=== PATIENT | female | born 1950 | race Asian ===

== ENCOUNTER 2018-05-14 17:57 | Emergency (ER) | payer MEDICARE, OTHER ==
[~2018-05-14] VITALS: Ht 149.9 cm; Wt 65.0 kg
[~2018-05-14 17:57] MED LIST: AMLO-512 PO
[2018-05-14 19:58] VITALS: BP 149/89
== END 2018-05-14 20:30 | disposition home or self-care (01) ==
LOC: EMS 17:57
DX: M25.562 Pain in left knee (principal); I12.9 Hypertensive chronic kidney disease with stage 1 through stage 4 chronic kidney disease, or unspecified chronic kidney disease; N18.9 Chronic kidney disease, unspecified; Z86.73 Personal history of transient ischemic attack (TIA), and cerebral infarction without residual deficits; Z79.899 Other long term (current) drug therapy
CPT/HCPCS: 29505; 99284

== ENCOUNTER 2020-06-06 04:21 | Emergency (ER) | payer MEDICARE, OTHER ==
[~2020-06-06] VITALS: Ht 149.9 cm; Wt 63.6 kg
[~2020-06-06 04:21] MED LIST changes: +AMLO-258 PO; -AMLO-512 PO
[2020-06-06 04:34] VITALS: BP 149/66
[2020-06-06 05:17] LABS: BASOPHILS % (AUTO) 0.7 % (0.0-2.0); HEMATOCRIT 35.3 % (36-46); HEMOGLOBIN 11.6 g/dL (12.0-16.0); LYMPHOCYTES % (AUTO) 19.7 % (22.0-44.0); MEAN CORPUSCULAR HEMOGLOBIN 31.6 pg (26.0-34.0); MEAN CORPUSCULAR HGB CONC 32.8 G/dL (31.0-37.0); MEAN CORPUSCULAR VOLUME 96 fL (80-100); MONOCYTES # (AUTO) 0.9 K/uL (0.1-1.0); NEUTROPHILS # (AUTO) 6.7 K/uL (1.8-7.7); NEUTROPHILS % (AUTO) 66.6 % (40.0-70.0); PLATELET COUNT (AUTO) 317 K/uL (150-450); RED BLOOD CELL COUNT(AUTO) 3.67 MIL/uL (4.00-5.20); RED CELL DISTRIBUTION WIDTH 13.8 % (11.5-14.5)
[2020-06-06 05:20] LABS: GLUCOSE,POINT OF CARE 98 MG/DL (70-110)
[2020-06-06 05:23] LABS: ANION GAP 7 mmol/L (8-16); CARBON DIOXIDE 26 mmol/L (22-29); CHLORIDE 106 mmol/L (98-107); CREATININE 4.07 mg/dL (0.60-1.30); GLOMERULAR FILTR. RATE CALC 11 mL/min (>60); GLUCOSE,RANDOM 103 mg/dL (70-110); POTASSIUM 3.6 mmol/L (3.5-5.1); SODIUM SERUM 139 mmol/L (136-145); UREA NITROGEN, BLOOD 30 mg/dL (7-18)
[2020-06-06] MEDS ORDERED: SODIUM CHLORIDE 0.9% 1,000 ML IV ONE (05:30)
[2020-06-06 05:48] LABS: ALANINE AMINOTRANSFERASE 20 U/L (12-78); ALBUMIN 3.6 g/dL (3.4-5.0); ALKALINE PHOSPHATASE 93 U/L (46-116); ASPARTATE AMINOTRANSFERASE 17 U/L (15-37); BILIRUBIN,TOTAL 0.5 mg/dL (0.1-1.0); CREATINE KINASE, TOTAL ONLY 83 U/L (26-192); TOTAL PROTEIN, SERUM 8.1 g/dL (6.4-8.2)
== END 2020-06-06 05:44 | disposition left against medical advice (07) ==
LOC: EMS 04:21
DX: R55 Syncope and collapse (principal); R06.00 Dyspnea, unspecified; R79.89 Other specified abnormal findings of blood chemistry
CPT/HCPCS: 36415; 70450; 71045; 80053; 82550; 82962; 84484; 85025; 93005; 99285; G0480; 82948

== ENCOUNTER 2021-01-13 21:07 | Emergency (ER) | payer MEDICARE, OTHER ==
[~2021-01-13] VITALS: Ht 144.8 cm; Wt 63.6 kg
[2021-01-13] MEDS ORDERED: CLOB15CR10 TP (21:22)
[2021-01-13] MEDS ORDERED: ASPI-1450 PO (21:22)
[2021-01-13] MEDS ORDERED: DIPY25TA31 PO (21:22)
[2021-01-13] MEDS ORDERED: ATOR10TA84 PO (21:22)
[2021-01-13] MEDS ORDERED: APRE1TAB PO (21:22)
[2021-01-13 22:02] LABS: BASOPHILS % (AUTO) 0.8 % (0.0-2.0); EOSINOPHILS % (AUTO) 5.5 % (1.0-6.0); HEMATOCRIT 29.8 % (36-46); HEMOGLOBIN 9.7 g/dL (12.0-16.0); LYMPHOCYTES # (AUTO) 2.8 K/uL (1.0-4.8); LYMPHOCYTES % (AUTO) 26.4 % (22.0-44.0); MEAN CORPUSCULAR HEMOGLOBIN 31.9 pg (26.0-34.0); MEAN CORPUSCULAR HGB CONC 32.6 G/dL (31.0-37.0); MEAN CORPUSCULAR VOLUME 98 fL (80-100); MONOCYTES # (AUTO) 0.8 K/uL (0.1-1.0); MONOCYTES % (AUTO) 8.1 % (2.0-9.0); NEUTROPHILS # (AUTO) 6.2 K/uL (1.8-7.7); NEUTROPHILS % (AUTO) 59.2 % (40.0-70.0); PLATELET COUNT (AUTO) 292 K/uL (150-450); RED BLOOD CELL COUNT(AUTO) 3.04 MIL/uL (4.00-5.20); RED CELL DISTRIBUTION WIDTH 13.5 % (11.5-14.5)
[2021-01-13 22:11] LABS: CREATININE 5.08 mg/dL (0.60-1.30); POTASSIUM 4.3 mmol/L (3.5-5.1)
[2021-01-13 22:30] LABS: B-TYPE NATRIURETIC PEPTIDE 78 pg/mL (0-100)
[2021-01-13] MEDS ORDERED: MECLIZINE HCL 25 MG TABLET PO ONE (22:30)
[2021-01-13 22:39] LABS: CREATINE KINASE, TOTAL ONLY 96 U/L (26-192)
[2021-01-13 22:40] LABS: ALBUMIN 3.6 g/dL (3.4-5.0); BILIRUBIN,TOTAL 0.4 mg/dL (0.1-1.0); TOTAL PROTEIN, SERUM 7.2 g/dL (6.4-8.2)
[2021-01-14 00:02] VITALS: BP 132/78
== END 2021-01-14 00:04 | disposition home or self-care (01) ==
LOC: EMS 21:07
DX: R07.9 Chest pain, unspecified (principal); R42 Dizziness and giddiness; I10 Essential (primary) hypertension; Z86.73 Personal history of transient ischemic attack (TIA), and cerebral infarction without residual deficits
CPT/HCPCS: 70450; 71045; 80053; 82550; 83880; 84484; 85025; 93005; 99285; 36415-L1; 36415-TC

== ENCOUNTER 2021-02-15 23:10 | Emergency (ER) | payer MEDICARE, OTHER ==
[~2021-02-15] VITALS: Ht 149.9 cm; Wt 63.6 kg
[~2021-02-15 23:10] MED LIST changes: +APRE1TAB PO; +ASPI-1450 PO; +ATOR10TA84 PO; +CLOB15CR10 TP; +DIPY25TA31 PO
[2021-02-15] MEDS ORDERED: DiphenhydrAMINE HCL 50 MG/ML VIAL IVP STA (23:31)
[2021-02-15] MEDS ORDERED: METOCLOPRAMIDE HCL 5 MG/ML 2 ML VIAL IVP ONE (23:45)
[2021-02-15] MEDS ORDERED: SODIUM CHLORIDE 0.9% 1,000 ML IV ONE (23:45)
[2021-02-16 00:29] LABS: BASOPHILS % (AUTO) 0.8 % (0.0-2.0); EOSINOPHILS % (AUTO) 1.2 % (1.0-6.0); HEMATOCRIT 33.9 % (36-46); LYMPHOCYTES # (AUTO) 1.2 K/uL (1.0-4.8); LYMPHOCYTES % (AUTO) 11.5 % (22.0-44.0); MEAN CORPUSCULAR HEMOGLOBIN 31.5 pg (26.0-34.0); MEAN CORPUSCULAR HGB CONC 32.3 G/dL (31.0-37.0); MEAN CORPUSCULAR VOLUME 98 fL (80-100); MONOCYTES # (AUTO) 0.6 K/uL (0.1-1.0); MONOCYTES % (AUTO) 5.9 % (2.0-9.0); NEUTROPHILS # (AUTO) 8.6 K/uL (1.8-7.7); NEUTROPHILS % (AUTO) 80.6 % (40.0-70.0); PLATELET COUNT (AUTO) 323 K/uL (150-450); RED BLOOD CELL COUNT(AUTO) 3.48 MIL/uL (4.00-5.20); RED CELL DISTRIBUTION WIDTH 13.6 % (11.5-14.5)
[2021-02-16 00:38] LABS: CREATININE 4.62 mg/dL (0.60-1.30); POTASSIUM 3.9 mmol/L (3.5-5.1)
[2021-02-16 01:03] LABS: ALBUMIN 3.5 g/dL (3.4-5.0); BILIRUBIN,TOTAL 0.6 mg/dL (0.1-1.0); MAGNESIUM 2.3 mg/dL (1.80-2.40); TOTAL PROTEIN, SERUM 7.9 g/dL (6.4-8.2)
[2021-02-16] MEDS ORDERED: SODIUM CHLORIDE 0.9% 1,000 ML IV ONE (01:15)
[2021-02-16] MEDS ORDERED: ACETAMINOPHEN 500 MG TABLET PO ONE (01:15)
[2021-02-16 01:22] LABS: APPEARANCE,URINE CLEAR (CLEAR); BILIRUBIN,URINE NEGATIVE (NEGATIVE); GLUCOSE, URINE (UA) NEGATIVE (NEGATIVE); KETONES,URINE NEGATIVE (NEGATIVE); LEUKOCYTE ESTERASE ,URINE NEGATIVE (NEGATIVE); NITRATE,URINE NEGATIVE (NEGATIVE); OCCULT BLOOD,URINE TRACE (NEGATIVE); PROTEIN,URINE POS 1+ (NEGATIVE); UROBILINOGEN,URINE 0.2 mg/dL (<=1.0)
[2021-02-16 01:29] LABS: BACTERIA,URINE None Seen /HPF (None Seen); RBC,URINE None Seen /HPF (0-2); SQUAMOUS EPITHELIAL CELL,UR None Seen /LPF (None Seen); WBC,URINE None Seen /HPF (0-5)
[2021-02-16] MEDS ORDERED: LOPERAMIDE HCL 2 MG CAPSULE PO ONE (02:15)
[2021-02-16 02:19] LABS: COVID AG,FIA SOURCE NASOPHARYNGEAL
[2021-02-16 02:51] VITALS: BP 121/67
== END 2021-02-16 03:08 | disposition home or self-care (01) ==
LOC: EMS 23:11
DX: E86.0 Dehydration (principal); R11.2 Nausea with vomiting, unspecified; R19.7 Diarrhea, unspecified; I12.9 Hypertensive chronic kidney disease with stage 1 through stage 4 chronic kidney disease, or unspecified chronic kidney disease; N18.9 Chronic kidney disease, unspecified; Z20.822 Contact with and (suspected) exposure to COVID-19; Z86.73 Personal history of transient ischemic attack (TIA), and cerebral infarction without residual deficits; Z79.82 Long term (current) use of aspirin
CPT/HCPCS: 36415; 80053; 81001; 82550; 83690; 83735; 84484; 85025; 87426; 93005; 96361 ×2; 96374; 96375; 99285; J1200; J2765; J7030 ×2

== ENCOUNTER → 2022-07-18 | Outpatient (CLI) | payer MEDICARE, OTHER ==
[~2022-07-18] MED LIST changes: +ATOR10TA PO; -ATOR10TA84 PO
== END | disposition home or self-care (01) ==
LOC: RADPV 11:00
PROVIDERS: ATTEND Internal Medicine Nephrology
DX: N18.5 Chronic kidney disease, stage 5 (principal)
CPT/HCPCS: 76770

== ENCOUNTER 2022-12-08 21:23 | Emergency (ER) | payer MEDICARE, OTHER ==
[~2022-12-08] VITALS: Ht 149.9 cm; Wt 50.0 kg
[2022-12-08 21:46] VITALS: BP 111/53
== END 2022-12-08 23:31 | disposition left against medical advice (07) ==
LOC: EMS 21:23
DX: R00.2 Palpitations (principal); Z53.21 Procedure and treatment not carried out due to patient leaving prior to being seen by health care provider
CPT/HCPCS: 93005; 99281

== ENCOUNTER 2023-08-24 13:48 | Inpatient (IN) | payer MEDICARE, OTHER ==
[~2023-08-24] VITALS: Ht 149.9 cm; Wt 40.1 kg
[2023-08-24] MEDS ORDERED: FOLI0.8T2 PO (14:15)
[2023-08-24] MEDS ORDERED: CINA30 PO (14:15)
[2023-08-24] MEDS ORDERED: CHOL25TA4 PO (14:15)
[2023-08-24] MEDS ORDERED: HYDR-3831 PO (14:15)
[2023-08-24] MEDS ORDERED: CALC0.25 PO (14:15)
[2023-08-24] MEDS ORDERED: APRE30TA5 PO (14:15)
[2023-08-24] MEDS ORDERED: SODI650T33 PO (14:15)
[2023-08-24] MEDS ORDERED: ASPI-1522 PO (14:15)
[2023-08-24] MEDS ORDERED: PANT-31 PO (14:15)
[2023-08-24] MEDS ORDERED: VITA180C2 PO (14:15)
[2023-08-24] MEDS ORDERED: AMLO-257 PO (14:15)
[2023-08-24] MEDS ORDERED: SEVE800T38 PO (14:15)
[2023-08-24] MEDS ORDERED: ATOR20TA PO (14:15)
[2023-08-24] MEDS ORDERED: PANTOPRAZOLE SODIUM 80 MG in SODIUM CHLORIDE 0.9% 100 ML IV SCH (14:45)
[2023-08-24] MEDS ORDERED: PANTOPRAZOLE SODIUM 40 MG/VIAL IVP ONE (14:45)
[2023-08-24 15:06] LABS: BASOPHILS % (AUTO) 0.9 % (0.0-2.0); EOSINOPHILS % (AUTO) 0.3 % (1.0-6.0); LYMPHOCYTES % (AUTO) 10.8 % (22.0-44.0); MEAN CORPUSCULAR HEMOGLOBIN 33.8 pg (26.0-34.0); MEAN CORPUSCULAR HGB CONC 33.5 G/dL (31.0-37.0); MEAN CORPUSCULAR VOLUME 101 fL (80-100); MONOCYTES # (AUTO) 0.3 K/uL (0.1-1.0); MONOCYTES % (AUTO) 3.7 % (2.0-9.0); NEUTROPHILS # (AUTO) 7.7 K/uL (1.8-7.7); NEUTROPHILS % (AUTO) 84.3 % (40.0-70.0); PLATELET COUNT (AUTO) 202 K/uL (150-450); RED BLOOD CELL COUNT(AUTO) 1.24 MIL/uL (4.00-5.20); RED CELL DISTRIBUTION WIDTH 14.5 % (11.5-14.5); WHITE BLOOD COUNT (AUTO) 9.2 K/uL (4.5-11.0)
[2023-08-24 15:16] LABS: ANION GAP 15 mmol/L (8-16); CALCIUM, TOTAL 8.4 mg/dL (8.8-10.5); CARBON DIOXIDE 21 mmol/L (22-29); CHLORIDE 98 mmol/L (98-107); CREATININE 8.62 mg/dL (0.60-1.30); GLOMERULAR FILTR. RATE CALC 5 mL/min (>60); GLUCOSE,RANDOM 109 mg/dL (70-110); POTASSIUM 3.8 mmol/L (3.5-5.1); SODIUM SERUM 134 mmol/L (136-145); UREA NITROGEN, BLOOD 89 mg/dL (7-18)
[2023-08-24 15:20] LABS: INR 0.9 (0.9-1.1); PROTHROMBIN TIME 9.8 SEC (9.4-11.6)
[2023-08-24 15:21] LABS: HEMATOCRIT 12.5 % (36-46); HEMOGLOBIN 4.2 g/dL (12.0-16.0)
[2023-08-24 15:22] LABS: ALANINE AMINOTRANSFERASE 14 U/L (12-78); ALBUMIN 2.5 g/dL (3.4-5.0); ALKALINE PHOSPHATASE 47 U/L (46-116); ASPARTATE AMINOTRANSFERASE 19 U/L (15-37); BILIRUBIN,TOTAL 0.2 mg/dL (0.1-1.0)
[2023-08-24 15:23] LABS: B-TYPE NATRIURETIC PEPTIDE 96 pg/mL (0-100); TROPONIN I-HIGH SENSITIVITY 51 ng/L (<51)
[2023-08-24 15:24] LABS: LACTIC ACID 1.5 mmol/L (0.4-2.0)
[2023-08-24 15:25] LABS: ALCOHOL, BLOOD (SERUM) < 3 mg/dL (0-10)
[2023-08-24 15:33] LABS: LIPASE 424 U/L (16-77)
[2023-08-24] MEDS ORDERED: DiphenhydrAMINE HCL 25 MG CAPSULE PO ONE (16:00)
[2023-08-24] MEDS ORDERED: ACETAMINOPHEN 500 MG TABLET PO ONE (16:00)
[2023-08-24 16:09] LABS: RBC MORPHOLOGY COMMENT ABNORMAL RBC MORPH
[2023-08-24 17:08] LABS: COVID AG,FIA SOURCE NASAL SWAB
[2023-08-24 17:38] LABS: SARS-COV2 (COVID) ANTIGEN,FIA Negative (Negative)
[2023-08-24 18:00] VITALS: BP 109/63; PULSE 96; PULSE 97; RESP 24; TEMP 98.3
[2023-08-24 20:00] VITALS: BP 118/50; PULSE 94; PULSE 99; RESP 16; TEMP 98.5
[2023-08-24 20:45] VITALS: BP 118/50; PULSE 70; RESP 18; TEMP 97.6
[2023-08-24] MEDS ORDERED: MAGNESIUM HYDROXIDE SUSPENSION 30 ML UDCUP PO PRN (21:15)
[2023-08-24] MEDS ORDERED: BISACODYL 10 MG RECTAL RECTAL SUPPOSITORY PR PRN (21:15)
[2023-08-24] MEDS ORDERED: ALBUTEROL SULFATE 2.5 MG/0.5 ML NEB SOLUTION NEB PRN (21:15)
[2023-08-24] MEDS ORDERED: MORPHINE SULFATE 2 MG/ML SYRINGE IVP PRN (21:15)
[2023-08-24] MEDS ORDERED: ZOLPIDEM TARTRATE 5 MG TABLET PO PRN (21:15)
[2023-08-24] MEDS ORDERED: IPRATROPIUM BROMIDE 0.5 MG/2.5 ML NEB SOLUTION NEB PRN (21:15)
[2023-08-24] MEDS ORDERED: ONDANSETRON HCL 4 MG/2 ML VIAL IVP PRN (21:15)
[2023-08-24] MEDS ORDERED: ACETAMINOPHEN 325 MG TABLET PO PRN (21:15)
[2023-08-24] MEDS ORDERED: HYDROCODONE/ACETAMINOPHEN 5-325 MG TABLET PO PRN (21:15)
[2023-08-24 22:05] LABS: MONOCYTES # (AUTO) 0.5 K/uL (0.1-1.0)
[2023-08-24 22:07] LABS: BASOPHILS % (AUTO) 1.1 % (0.0-2.0); EOSINOPHILS % (AUTO) 1.9 % (1.0-6.0); LYMPHOCYTES # (AUTO) 1.7 K/uL (1.0-4.8); LYMPHOCYTES % (AUTO) 18.7 % (22.0-44.0); MEAN CORPUSCULAR HEMOGLOBIN 34.5 pg (26.0-34.0); MEAN CORPUSCULAR VOLUME 101 fL (80-100); MONOCYTES % (AUTO) 5.6 % (2.0-9.0); NEUTROPHILS # (AUTO) 6.7 K/uL (1.8-7.7); NEUTROPHILS % (AUTO) 72.7 % (40.0-70.0); PLATELET COUNT (AUTO) 228 K/uL (150-450); RED CELL DISTRIBUTION WIDTH 14.3 % (11.5-14.5); WHITE BLOOD COUNT (AUTO) 9.3 K/uL (4.5-11.0)
[2023-08-24 22:15] LABS: CALCIUM, TOTAL 8.6 mg/dL (8.8-10.5); CREATININE 9.21 mg/dL (0.60-1.30); POTASSIUM 3.6 mmol/L (3.5-5.1)
[2023-08-24 22:26] LABS: ALBUMIN 2.6 g/dL (3.4-5.0); BILIRUBIN,TOTAL 0.2 mg/dL (0.1-1.0); TOTAL PROTEIN, SERUM 5.3 g/dL (6.4-8.2)
[2023-08-24 22:33] LABS: HEMATOCRIT 12.2 % (36-46); HEMOGLOBIN 4.1 g/dL (12.0-16.0)
[2023-08-24] MEDS ORDERED: DEXTROSE 5%-0.45% SODIUM CHL 1,000 ML IV PRN (23:55)
[2023-08-25] VITALS (17 sets, daily range): BP systolic 93–143; BP diastolic 44–97; PULSE 77–91; RESP 14–21; TEMP 97.8–98.5
[2023-08-25] MEDS ORDERED: SODIUM CHLORIDE 0.9% 250 ML IV ONE (06:12)
[2023-08-25] MEDS: DOCUSATE SODIUM 100 MG CAPSULE PO SCH ×2 (09:00→21:00)
[2023-08-25] MEDS: PANTOPRAZOLE SODIUM 80 MG in SODIUM CHLORIDE 0.9% 100 ML IV SCH ×3 (10:06)
[2023-08-25 13:33] LABS: EOSINOPHILS % (AUTO) 2.6 % (1.0-6.0); HEMATOCRIT 25.2 % (36-46); HEMOGLOBIN 8.8 g/dL (12.0-16.0); LYMPHOCYTES # (AUTO) 1.2 K/uL (1.0-4.8); LYMPHOCYTES % (AUTO) 13.2 % (22.0-44.0); MEAN CORPUSCULAR HEMOGLOBIN 33.3 pg (26.0-34.0); MEAN CORPUSCULAR HGB CONC 34.9 G/dL (31.0-37.0); MEAN CORPUSCULAR VOLUME 95 fL (80-100); MONOCYTES # (AUTO) 0.7 K/uL (0.1-1.0); MONOCYTES % (AUTO) 7.7 % (2.0-9.0); NEUTROPHILS # (AUTO) 7.1 K/uL (1.8-7.7); NEUTROPHILS % (AUTO) 75.5 % (40.0-70.0); PLATELET COUNT (AUTO) 184 K/uL (150-450); RED BLOOD CELL COUNT(AUTO) 2.64 MIL/uL (4.00-5.20); RED CELL DISTRIBUTION WIDTH 13.8 % (11.5-14.5); WHITE BLOOD COUNT (AUTO) 9.4 K/uL (4.5-11.0)
[2023-08-25] MEDS ORDERED: PROPOFOL 1% 20 ML VIAL IVP ONE (14:56)
[2023-08-25] MEDS ORDERED: LIDOCAINE/PF 2% 5 ML VIAL ONE (14:56)
[2023-08-25 17:06] LABS: APPEARANCE,URINE HAZY (CLEAR); BILIRUBIN,URINE NEGATIVE (NEGATIVE); COLOR,URINE LIGHT YELLOW (YELLOW); GLUCOSE, URINE (UA) 150-200 mg/dL (NEGATIVE); KETONES,URINE NEGATIVE (NEGATIVE); LEUKOCYTE ESTERASE ,URINE NEGATIVE (NEGATIVE); NITRATE,URINE NEGATIVE (NEGATIVE); OCCULT BLOOD,URINE LARGE (NEGATIVE); PROTEIN,URINE 30-70 mg/dL (NEGATIVE); SPECIFIC GRAVITIY, URINE 1.006 (1.003-1.030); UROBILINOGEN,URINE <=1.0 mg/dL (<=1.0)
[2023-08-25 17:10] LABS: BACTERIA,URINE Few /HPF (None Seen); SQUAMOUS EPITHELIAL CELL,UR Moderate /LPF (None Seen); WBC,URINE 0-2 /HPF (0-5)
[2023-08-26] VITALS: BP 138/63; PULSE 82; RESP 21; TEMP 98.3
[2023-08-26 04:00] VITALS: BP 152/72; PULSE 84; RESP 18; TEMP 98.6
[2023-08-26 05:54] LABS: ALBUMIN 2.4 g/dL (3.4-5.0); BILIRUBIN,TOTAL 0.4 mg/dL (0.1-1.0); CALCIUM, TOTAL 8.3 mg/dL (8.8-10.5); CREATININE 9.03 mg/dL (0.60-1.30); PHOSPHORUS 6.6 mg/dL (2.5-4.9); POTASSIUM 3.6 mmol/L (3.5-5.1); TOTAL PROTEIN, SERUM 5.1 g/dL (6.4-8.2)
[2023-08-26 06:02] LABS: HEMATOCRIT 24.2 % (36-46); HEMOGLOBIN 8.8 g/dL (12.0-16.0); LYMPHOCYTES # (AUTO) 1.2 K/uL (1.0-4.8); MEAN CORPUSCULAR HGB CONC 36.5 G/dL (31.0-37.0); MEAN CORPUSCULAR VOLUME 93 fL (80-100); MONOCYTES # (AUTO) 0.8 K/uL (0.1-1.0); MONOCYTES % (AUTO) 9.3 % (2.0-9.0); NEUTROPHILS # (AUTO) 6.5 K/uL (1.8-7.7); NEUTROPHILS % (AUTO) 71.7 % (40.0-70.0); PLATELET COUNT (AUTO) 210 K/uL (150-450); RED CELL DISTRIBUTION WIDTH 14.7 % (11.5-14.5)
[2023-08-26 08:00] VITALS: BP 152/86; PULSE 78; RESP 12; TEMP 98.1
[2023-08-26] MEDS: DOCUSATE SODIUM 100 MG CAPSULE PO SCH (08:14)
[2023-08-26] MEDS ORDERED: PANTOPRAZOLE SODIUM 40 MG DR TABLET PO SCH (09:00)
[2023-08-26 12:00] VITALS: BP 153/74; PULSE 83; RESP 10; TEMP 98.4
[2023-08-26] MEDS ORDERED: SEVELAMER CARBONATE 800 MG TABLET PO SCH (12:00)
[2023-08-26] MEDS ORDERED: PANT-31 PO (15:32)
[2023-08-26 16:00] VITALS: BP 135/69; PULSE 86; RESP 17; TEMP 98.3
[2023-08-27] MEDS ORDERED: CALCITRIOL 0.25 MCG CAPSULE PO ONE (09:00)
== END 2023-08-26 16:45 | disposition home or self-care (01) | DRG 377 ==
LOC: EMS 13:49 → 6S 15:09 → 5S 16:35 → 6S 16:35 → ICU 17:32
PROVIDERS: ADMIT Hospitalist; ATTEND Hospitalist
PROC: 3E1M39Z Irrigation of Peritoneal Cavity using Dialysate, Percutaneous Approach (ICD-10-PCS; 2023-08-24)
PROC: 30233N1 Transfusion of Nonautologous Red Blood Cells into Peripheral Vein, Percutaneous Approach (ICD-10-PCS; 2023-08-25)
PROC: 3E1M39Z Irrigation of Peritoneal Cavity using Dialysate, Percutaneous Approach (ICD-10-PCS; 2023-08-25)
PROC: 0DJ08ZZ Inspection of Upper Intestinal Tract, Via Natural or Artificial Opening Endoscopic (ICD-10-PCS; principal; 2023-08-25 13:30)
DX: K29.81 Duodenitis with bleeding (principal); N18.6 End stage renal disease; I12.0 Hypertensive chronic kidney disease with stage 5 chronic kidney disease or end stage renal disease; K29.71 Gastritis, unspecified, with bleeding; I25.10 Atherosclerotic heart disease of native coronary artery without angina pectoris; Z20.822 Contact with and (suspected) exposure to COVID-19; D50.0 Iron deficiency anemia secondary to blood loss (chronic); R55 Syncope and collapse; E78.5 Hyperlipidemia, unspecified; Z79.899 Other long term (current) drug therapy; Z99.2 Dependence on renal dialysis; Z86.73 Personal history of transient ischemic attack (TIA), and cerebral infarction without residual deficits; Z82.49 Family history of ischemic heart disease and other diseases of the circulatory system; Z79.82 Long term (current) use of aspirin; Z98.891 History of uterine scar from previous surgery
CPT/HCPCS: 71045; 80053; 81001; 82271; 83605; 83690; 83735; 83880; 84100; 84484; 85025; 85610; 86850; 86870; 86900; 86901; 86902; 86922; 87040; 87081; 90945; 93005; 99291; C9113; G0480; J2704; J3490; J7050; P9016; 36415-L1; 36415-TC

== ENCOUNTER 2023-11-08 06:30 | Inpatient (IN) | payer MEDICARE, OTHER ==
[~2023-11-08] VITALS: Ht 152.4 cm; Wt 56.1 kg
[~2023-11-08 06:30] MED LIST changes: +AMLO-257 PO; -AMLO-258 PO; -APRE1TAB PO; +APRE30TA5 PO; -ASPI-1450 PO; +ASPI-1522 PO; -ATOR10TA PO; +ATOR20TA PO; +CALC0.25 PO; +CHOL25TA4 PO; +CINA30 PO; -CLOB15CR10 TP; -DIPY25TA31 PO; +FOLI0.8T2 PO; +HYDR-3831 PO; +PANT-31 PO; +SEVE800T38 PO; +SODI650T33 PO; +VITA180C2 PO
[2023-11-08 07:38] LABS: EOSINOPHILS % (AUTO) 1.3 % (1.0-6.0); LYMPHOCYTES # (AUTO) 0.7 K/uL (1.0-4.8); LYMPHOCYTES % (AUTO) 6.8 % (22.0-44.0); MEAN CORPUSCULAR HGB CONC 33.3 G/dL (31.0-37.0); MEAN CORPUSCULAR VOLUME 102 fL (80-100); MONOCYTES # (AUTO) 0.6 K/uL (0.1-1.0); MONOCYTES % (AUTO) 5.9 % (2.0-9.0); NEUTROPHILS # (AUTO) 8.9 K/uL (1.8-7.7); PLATELET COUNT (AUTO) 321 K/uL (150-450); RED CELL DISTRIBUTION WIDTH 15.6 % (11.5-14.5); WHITE BLOOD COUNT (AUTO) 10.5 K/uL (4.5-11.0)
[2023-11-08 07:41] LABS: CALCIUM, TOTAL 8.5 mg/dL (8.8-10.5); CREATININE 9.85 mg/dL (0.60-1.30); POTASSIUM 4.1 mmol/L (3.5-5.1)
[2023-11-08 07:45] LABS: HEMOGLOBIN 4.1 g/dL (12.0-16.0)
[2023-11-08 07:46] LABS: HEMATOCRIT 12.2 % (36-46)
[2023-11-08 07:46] LABS: ALBUMIN 2.3 g/dL (3.4-5.0); BILIRUBIN,TOTAL 0.3 mg/dL (0.1-1.0); TOTAL PROTEIN, SERUM 5.8 g/dL (6.4-8.2)
[2023-11-08] MEDS: ACETAMINOPHEN 325 MG TABLET PO ONE (08:28)
[2023-11-08 08:34] LABS: INR 0.9 (0.9-1.1); PROTHROMBIN TIME 9.9 SEC (9.4-11.6)
[2023-11-08] MEDS ORDERED: ACETAMINOPHEN 325 MG TABLET PO PRN (10:00)
[2023-11-08] MEDS ORDERED: ALBUTEROL SULFATE 2.5 MG/0.5 ML NEB SOLUTION NEB PRN (10:00)
[2023-11-08] MEDS ORDERED: HydrALAZINE HCL 20 MG/ML VIAL IVP PRN (10:00)
[2023-11-08] MEDS ORDERED: ONDANSETRON HCL 4 MG/2 ML VIAL IVP PRN (10:00)
[2023-11-08] MEDS ORDERED: 0.9% SODIUM CHLORIDE 10 ML SYRINGE IVP PRN (10:00)
[2023-11-08] MEDS ORDERED: IPRATROPIUM BROMIDE 0.5 MG/2.5 ML NEB SOLUTION NEB PRN (10:00)
[2023-11-08] MEDS: *CLINICAL-CEFEPIME DOSING CLINICAL ONE (10:11)
[2023-11-08 10:20] LABS: APPEARANCE,URINE CLEAR (CLEAR); BILIRUBIN,URINE NEGATIVE (NEGATIVE); COLOR,URINE COLORLESS (YELLOW); GLUCOSE, URINE (UA) 150-200 mg/dL (NEGATIVE); KETONES,URINE NEGATIVE (NEGATIVE); LEUKOCYTE ESTERASE ,URINE TRACE (NEGATIVE); NITRATE,URINE NEGATIVE (NEGATIVE); OCCULT BLOOD,URINE TRACE (NEGATIVE); PH,URINE 7.5 (5.0-8.0); PROTEIN,URINE 30-70 mg/dL (NEGATIVE); SPECIFIC GRAVITIY, URINE 1.009 (1.003-1.030); UROBILINOGEN,URINE <=1.0 mg/dL (<=1.0)
[2023-11-08 10:29] LABS: RBC,URINE 0-2 /HPF (0-2); WBC,URINE 0-2 /HPF (0-5)
[2023-11-08 10:30] LABS: BACTERIA,URINE Few /HPF (None Seen); SQUAMOUS EPITHELIAL CELL,UR Few /LPF (None Seen)
[2023-11-08] MEDS ORDERED: VANCOMYCIN 1GM/WATER(PEG/NADA) 200 ML IV PRN (10:30)
[2023-11-08] MEDS: NYSTATIN 500,000 UNITS/5 ML SUSPENSION UDCUP PO ONE (10:51)
[2023-11-08] MEDS: PANTOPRAZOLE SODIUM 40 MG/VIAL IVP SCH (10:51)
[2023-11-08] MEDS: SODIUM CHLORIDE 0.9% 1,000 ML IV ONE (10:51)
[2023-11-08] MEDS: EPOETIN ALFA 10,000 UNITS/ML VIAL SQ ONE (10:52)
[2023-11-08 10:58] LABS: INFLUENZA A-RTPCR,COMBO NEGATIVE (NEGATIVE); INFLUENZA B-RTPCR,COMBO NEGATIVE (NEGATIVE); RESPIRATORY SYNCYTIAL VRS-PCR NEGATIVE (NEGATIVE); SARS COVID19 RTPCR, COMBO NEGATIVE (NEGATIVE)
[2023-11-08 14:13] LABS: SPECIMENTYPE,BODY FLUID PERITONEAL
[2023-11-08 14:42] LABS: APPEARANCE,UNSPUN,BODY FLUID CLOUDY (CLEAR); COLOR,BODY FLUID LT YELLOW (LT YELLOW); TOTAL VOLUME,BODY FLUID 10 mL
[2023-11-08 14:44] LABS: APPEARANCE,SPUN,BODY FLUID CLEAR (CLEAR)
[2023-11-08 14:59] LABS: BASOPHILS,BODY FLUID 0 %; EOSINOPHILS,BF (ANAL) 0 %; LYMPHOCYTES,BODY FLUID 15 %; MONOCYTES,BODY FLUID 2 %; NEUTROPHILS,BODY FLUID 83 %; WBC, BODY FLUID 62450 /cu. mm.
[2023-11-08 15:20] VITALS: BP 127/61; PULSE 94; RESP 18; TEMP 99
[2023-11-08] MEDS: VANCOMYCIN 1.25 GM/WATER(PEG) 250 ML IV ONE (15:32)
[2023-11-08 17:13] LABS: HEMATOCRIT 10.6 % (36-46); HEMOGLOBIN 3.5 g/dL (12.0-16.0)
[2023-11-08] MEDS: CEFEPIME HCL 2 GM in DEXTROSE 5%-WATER 50 ML IV ONE (17:36)
[2023-11-08 19:30] VITALS: BP 117/52; PULSE 98; RESP 18; TEMP 98.4
[2023-11-08 19:43] VITALS: BP 117/52; PULSE 98; RESP 18; TEMP 98.4
[2023-11-08 20:00] VITALS: BP 121/54; PULSE 95; RESP 19; TEMP 98.4
[2023-11-08] MEDS ORDERED: SODIUM CHLORIDE 0.9% 500 ML IV ONE (22:56)
[2023-11-09] VITALS (22 sets, daily range): BP systolic 107–146; BP diastolic 52–80; PULSE 81–97; RESP 16–20; TEMP 97.7–99
[2023-11-09 06:33] LABS: BASOPHILS % (AUTO) 0.6 % (0.0-2.0); EOSINOPHILS % (AUTO) 6.1 % (1.0-6.0); LYMPHOCYTES # (AUTO) 0.7 K/uL (1.0-4.8); LYMPHOCYTES % (AUTO) 7.9 % (22.0-44.0); MEAN CORPUSCULAR HEMOGLOBIN 31.4 pg (26.0-34.0); MEAN CORPUSCULAR HGB CONC 34.6 G/dL (31.0-37.0); MEAN CORPUSCULAR VOLUME 91 fL (80-100); MONOCYTES # (AUTO) 0.8 K/uL (0.1-1.0); MONOCYTES % (AUTO) 8.9 % (2.0-9.0); NEUTROPHILS # (AUTO) 6.5 K/uL (1.8-7.7); NEUTROPHILS % (AUTO) 76.5 % (40.0-70.0); PLATELET COUNT (AUTO) 264 K/uL (150-450); RED BLOOD CELL COUNT(AUTO) 1.83 MIL/uL (4.00-5.20); RED CELL DISTRIBUTION WIDTH 20.5 % (11.5-14.5); WHITE BLOOD COUNT (AUTO) 8.5 K/uL (4.5-11.0)
[2023-11-09 06:50] LABS: ALBUMIN 1.9 g/dL (3.4-5.0); BILIRUBIN,TOTAL 0.7 mg/dL (0.1-1.0); CALCIUM, TOTAL 8.1 mg/dL (8.8-10.5); CREATININE 8.64 mg/dL (0.60-1.30); POTASSIUM 3.7 mmol/L (3.5-5.1); TOTAL PROTEIN, SERUM 5.2 g/dL (6.4-8.2)
[2023-11-09 07:32] LABS: HEMATOCRIT 16.6 % (36-46); HEMOGLOBIN 5.7 g/dL (12.0-16.0)
[2023-11-09] MEDS ORDERED: *NON-FORMULARY MED [ENTER DRUG, DOSE, FREQ IN COMMENTS] CLINICAL ONE ×2 (09:45→11:30)
[2023-11-09] MEDS: CEFTAZIDIME PENTAHYDRATE IP ONE (12:15)
[2023-11-09] MEDS: [UNRECOGNIZED DRUG - OTHER] IP ONE (12:15)
[2023-11-09] MEDS: VANCOMYCIN HCL IP ONE (12:15)
[2023-11-09] MEDS: CEFEPIME HCL 0.5 GM in DEXTROSE 5%-WATER 50 ML IV SCH (13:35)
[2023-11-09 16:46] LABS: HEMOGLOBIN 8.8 g/dL (12.0-16.0)
[2023-11-09] MEDS: PEG 3350/NA SULF,BICARB,CL/KCL 4000 ML SOLUTION PO ONE (18:47)
[2023-11-10] VITALS (7 sets, daily range): BP systolic 112–140; BP diastolic 48–91; PULSE 70–86; RESP 16–20; TEMP 97.9–98.5
[2023-11-10] MEDS: PEG 3350/NA SULF,BICARB,CL/KCL 4000 ML SOLUTION PO ONE (06:11)
[2023-11-10 07:23] LABS: BASOPHILS % (AUTO) 0.8 % (0.0-2.0); EOSINOPHILS % (AUTO) 10.7 % (1.0-6.0); HEMATOCRIT 24.5 % (36-46); HEMOGLOBIN 8.5 g/dL (12.0-16.0); LYMPHOCYTES # (AUTO) 0.9 K/uL (1.0-4.8); LYMPHOCYTES % (AUTO) 9.2 % (22.0-44.0); MEAN CORPUSCULAR HEMOGLOBIN 31.6 pg (26.0-34.0); MEAN CORPUSCULAR HGB CONC 34.9 G/dL (31.0-37.0); MEAN CORPUSCULAR VOLUME 91 fL (80-100); MONOCYTES % (AUTO) 10.4 % (2.0-9.0); NEUTROPHILS # (AUTO) 6.6 K/uL (1.8-7.7); NEUTROPHILS % (AUTO) 68.9 % (40.0-70.0); PLATELET COUNT (AUTO) 284 K/uL (150-450); RED CELL DISTRIBUTION WIDTH 19.1 % (11.5-14.5); WHITE BLOOD COUNT (AUTO) 9.6 K/uL (4.5-11.0)
[2023-11-10 07:31] LABS: ALBUMIN 2.1 g/dL (3.4-5.0); BILIRUBIN,TOTAL 0.4 mg/dL (0.1-1.0); CALCIUM, TOTAL 8.3 mg/dL (8.8-10.5); CREATININE 8.37 mg/dL (0.60-1.30); POTASSIUM 3.6 mmol/L (3.5-5.1); TOTAL PROTEIN, SERUM 5.7 g/dL (6.4-8.2); VANCOMYCIN,RANDOM 18.9 mcg/mL (25.0-50.0)
[2023-11-10] MEDS ORDERED: SODIUM CHLORIDE 0.9% 1,000 ML ONE (09:30)
[2023-11-10] MEDS ORDERED: LIDOCAINE/PF 2% 5 ML VIAL IM ONE (12:00)
[2023-11-10] MEDS: MetroNIDAZOLE 500 MG TABLET PO SCH (12:46)
[2023-11-10] MEDS: VANCOMYCIN 750 MG/WATER(PEG) 150 ML IV ONE (12:48)
[2023-11-10 16:28] LABS: HEMATOCRIT 26.1 % (36-46); HEMOGLOBIN 8.9 g/dL (12.0-16.0)
[2023-11-10] MEDS: VANCOMYCIN HCL IP ONE (17:00)
[2023-11-10] MEDS: [UNRECOGNIZED DRUG - OTHER] IP ONE (17:00)
[2023-11-10] MEDS: CEFTAZIDIME PENTAHYDRATE IP ONE (17:00)
[2023-11-10] MEDS: *NON-FORMULARY MED [ENTER DRUG, DOSE, FREQ IN COMMENTS] CLINICAL ONE (17:02)
[2023-11-11] VITALS (9 sets, daily range): BP systolic 112–153; BP diastolic 50–80; PULSE 75–87; RESP 16–20; TEMP 97.6–98.1
[2023-11-11 07:31] LABS: BASOPHILS % (AUTO) 0.8 % (0.0-2.0); EOSINOPHILS % (AUTO) 10.3 % (1.0-6.0); HEMATOCRIT 24.1 % (36-46); HEMOGLOBIN 8.4 g/dL (12.0-16.0); LYMPHOCYTES # (AUTO) 0.9 K/uL (1.0-4.8); LYMPHOCYTES % (AUTO) 9.4 % (22.0-44.0); MEAN CORPUSCULAR HEMOGLOBIN 31.7 pg (26.0-34.0); MEAN CORPUSCULAR HGB CONC 34.8 G/dL (31.0-37.0); MEAN CORPUSCULAR VOLUME 91 fL (80-100); MONOCYTES % (AUTO) 9.8 % (2.0-9.0); NEUTROPHILS # (AUTO) 6.8 K/uL (1.8-7.7); NEUTROPHILS % (AUTO) 69.7 % (40.0-70.0); PLATELET COUNT (AUTO) 297 K/uL (150-450); RED BLOOD CELL COUNT(AUTO) 2.64 MIL/uL (4.00-5.20); RED CELL DISTRIBUTION WIDTH 18.6 % (11.5-14.5); WHITE BLOOD COUNT (AUTO) 9.8 K/uL (4.5-11.0)
[2023-11-11 07:38] LABS: CREATININE 7.64 mg/dL (0.60-1.30); POTASSIUM 3.3 mmol/L (3.5-5.1)
[2023-11-11] MEDS: *NON-FORMULARY MED [ENTER DRUG, DOSE, FREQ IN COMMENTS] CLINICAL ONE (17:00)
[2023-11-11] MEDS: VANCOMYCIN HCL IP ONE (17:15)
[2023-11-11] MEDS: DEX IP ONE (17:15)
[2023-11-11] MEDS: PERIT DIALYSIS NO 6 IP ONE (17:15)
[2023-11-12] VITALS (11 sets, daily range): BP systolic 106–158; BP diastolic 60–83; PULSE 68–82; RESP 16–20; TEMP 97.5–98.3
[2023-11-12 07:31] LABS: BASOPHILS % (AUTO) 1.1 % (0.0-2.0); EOSINOPHILS % (AUTO) 11.1 % (1.0-6.0); HEMATOCRIT 21.4 % (36-46); HEMOGLOBIN 7.4 g/dL (12.0-16.0); MEAN CORPUSCULAR HEMOGLOBIN 31.7 pg (26.0-34.0); MEAN CORPUSCULAR HGB CONC 34.6 G/dL (31.0-37.0); MEAN CORPUSCULAR VOLUME 92 fL (80-100); MONOCYTES # (AUTO) 0.8 K/uL (0.1-1.0); MONOCYTES % (AUTO) 9.5 % (2.0-9.0); NEUTROPHILS # (AUTO) 5.4 K/uL (1.8-7.7); NEUTROPHILS % (AUTO) 66.3 % (40.0-70.0); PLATELET COUNT (AUTO) 301 K/uL (150-450); RED BLOOD CELL COUNT(AUTO) 2.33 MIL/uL (4.00-5.20); RED CELL DISTRIBUTION WIDTH 18.4 % (11.5-14.5); WHITE BLOOD COUNT (AUTO) 8.2 K/uL (4.5-11.0)
[2023-11-12 07:41] LABS: CALCIUM, TOTAL 7.8 mg/dL (8.8-10.5); CREATININE 6.63 mg/dL (0.60-1.30); POTASSIUM 3.1 mmol/L (3.5-5.1)
[2023-11-12] MEDS: POTASSIUM CHLORIDE 20 MEQ ER TABLET PO ONE (10:39)
[2023-11-12] MEDS ORDERED: POTASSIUM CHL 10 MEQ/WATER 50 ML IV SCH (10:45)
[2023-11-12] MEDS ORDERED: SODIUM CHLORIDE 0.9% 500 ML IV ONE (15:25)
[2023-11-12] MEDS: POTASSIUM CHLORIDE 20 MEQ ER TABLET PO SCH (17:04)
[2023-11-12] MEDS ORDERED: PANT-31 PO (17:49)
[2023-11-12] MEDS ORDERED: [UNRECOGNIZED DRUG - OTHER] IP ONE (18:00)
[2023-11-12] MEDS: *NON-FORMULARY MED [ENTER DRUG, DOSE, FREQ IN COMMENTS] CLINICAL ONE ×2 (18:00→18:16)
[2023-11-12] MEDS ORDERED: CEFTAZIDIME PENTAHYDRATE IP ONE (18:00)
[2023-11-12] MEDS ORDERED: VANCOMYCIN HCL IP ONE ×2 (18:00→18:15)
[2023-11-12] MEDS ORDERED: DEX IP ONE (18:15)
[2023-11-12] MEDS ORDERED: [UNRECOGNIZED DRUG - OTHER] IP ONE (18:15)
[2024-11-09] MEDS ORDERED: PROPOFOL 1% 20 ML VIAL IVP ONE (12:00)
== END 2023-11-12 19:00 | disposition home or self-care (01) | DRG 377 ==
LOC: EMS 06:30 → 5S 12:35
PROVIDERS: ADMIT Internal Medicine; ATTEND Internal Medicine
PROC: 3E1M39Z Irrigation of Peritoneal Cavity using Dialysate, Percutaneous Approach (ICD-10-PCS; principal; 2023-11-08)
PROC: 30233N1 Transfusion of Nonautologous Red Blood Cells into Peripheral Vein, Percutaneous Approach (ICD-10-PCS; 2023-11-09)
PROC: 0DBK8ZX Excision of Ascending Colon, Via Natural or Artificial Opening Endoscopic, Diagnostic (ICD-10-PCS; 2023-11-10)
PROC: 0DBH8ZX Excision of Cecum, Via Natural or Artificial Opening Endoscopic, Diagnostic (ICD-10-PCS; 2023-11-10)
DX: K92.2 Gastrointestinal hemorrhage, unspecified (principal); K65.2 Spontaneous bacterial peritonitis; N18.6 End stage renal disease; E87.20 Acidosis, unspecified; I12.0 Hypertensive chronic kidney disease with stage 5 chronic kidney disease or end stage renal disease; K64.8 Other hemorrhoids; D64.9 Anemia, unspecified; Z99.2 Dependence on renal dialysis; E88.09 Other disorders of plasma-protein metabolism, not elsewhere classified; Z20.822 Contact with and (suspected) exposure to COVID-19; Z86.73 Personal history of transient ischemic attack (TIA), and cerebral infarction without residual deficits
CPT/HCPCS: 0241U; 71045; 74176; 80048; 80053; 80202; 81001; 82271; 83690; 84145; 85014; 85018; 85025; 85610; 85730; 86850; 86870; 86880; 86900; 86901; 86902; 86922; 86999; 87040; 87075; 87186; 87205; 88305; 89051; 90945; 99285; C9113; J0692; J0713; J0885; J2704; J3370; J3490; J7030; J7040; J7060; P9016; Q9967; 36415-L1; 36415-TC; 87070